=== PATIENT | male | born 1965 | race African-American/Black ===

== ENCOUNTER → 2018-08-13 | Emergency (ER) | payer OTHER ==
[~2018-08-13] VITALS: Ht 185.4 cm; Wt 66.7 kg
[~2018-08-13] MED LIST: AMOXICILLIN500 MG ORAL; IBUPROFEN600 MG ORAL; NKM
--- NOTE | 2018-08-13 11:21 | NUR ---
ED Nurse Note: Provided mask.
--- NOTE | 2018-08-13 11:30 | NUR ---
ED Nurse Note: pt walked into ED c/o flu like s/s about three days, chills, bodyache, fever, cough and sorethroa. Pt aA&ox4, gcs=15, skin warm and dry, resp even and unlabored, -n/v/d, ambulates w/ steady gait, LS=clear, occasional cough and nasal congestion noted.
[2018-08-13 12:20] VITALS: BP 120/70
[2018-08-13 12:22] VITALS: BP 120/70
--- NOTE | 2018-08-13 12:24 | NUR ---
ED Nurse Note: pt discharge instruction provided w/ prescription, pt education done via discussion and handout, pt advised to follow up w/ pcp 2-3days, pt verbalized understanding and agrees with plan, pt wrist band removed, pt ambulatory w/ steady gait, vss, all belongings left w/ pt.
--- NOTE | 2018-08-16 07:16 | Emergency Room Report ---
History of Present Illness General Chief Complaint: Flu Like Symptoms Source: Patient Present Illness HPI Patient presents with complaints of sore throat pain with swallowing body ache chills Subjective fevers Denies any posterior neck pain or photophobia denies any vomiting denies any diarrhea Denies any lower abdominal pain denies any recent travel denies any rash Symptoms ongoing for the past 5-6 days Allergies: Coded Allergies: No Known Allergies (Unverified , 08/13/18) Patient History Past Medical History: see triage record Pertinent Family History: none Reviewed Nursing Documentation: PMH: Agreed; PSxH: Agreed Nursing Documentation-PMH Past Medical History: No Stated History Review of Systems All Other Systems: negative except mentioned in HPI Physical Exam Vital Signs Date Time Temp Pulse Resp B/P (MAP) Pulse Ox O2 Delivery O2 Flow Rate FiO2 08/13/18 11:13 98.2 50 16 120/76 97 Room Air Sp02 EP Interpretation: reviewed, normal General Appearance: well appearing, no apparent distress Head: normocephalic, atraumatic Eyes: bilateral eye PERRL, bilateral eye EOMI ENT: hearing grossly normal, TMs + canals normal, uvula midline, pharyngeal erythema Neck: full range of motion, supple, no meningismus, no bony tend Respiratory: lungs clear, normal breath sounds, no rhonchi, no respiratory distress, no retraction, no accessory muscle use Cardiovascular #1: normal peripheral pulses, regular rate, rhythm, no edema, no gallop, no JVD, no murmur Gastrointestinal: normal bowel sounds, non tender, soft, no mass, no organomegaly, non-distended, no guarding, no hernia, no pulsatile mass, no rebound Genitourinary: no CVA tenderness Musculoskeletal: normal inspection Neurologic: oriented x3, responsive, laundry presser III-XII nml as tested, motor strength/ tone normal, sensory intact Psychiatric: mood/affect normal Skin: normal color, no rash, warm/dry, palpation normal Lymphatic: normal inspection, no adenopathy Medical Decision Making Diagnostic Impression: Primary Impression: pharyngitis ER Course Patient's history and exam does have some consistency with flulike symptoms given the throat exam however in the increased erythema in the discomfort likely secondary pharyngitis also considered Patient placed on antibiotics For close outpatient follow-up and will return with any changes or concerns Last Vital Signs Date Time Temp Pulse Resp B/P (MAP) Pulse Ox O2 Delivery O2 Flow Rate FiO2 08/13/18 12:22 98.2 78 16 120/70 99 Room Air Status: unchanged Disposition: HOME, SELF-CARE Condition: Stable Scripts Amoxicillin* (AMOXIL*) 500 Mg Capsule 500 MG ORAL THREE TIMES A DAY, #21 CAP Prov: Javad Segura DO 08/13/18 Ibuprofen* (MOTRIN*) 600 Mg Tablet 600 MG ORAL Q8H PRN for For Pain, #20 TAB 0 Refills Prov: Javad Segura DO 08/13/18 Referrals: [facility],REFERRING (PCP) Patient Instructions: Pharyngitis, [id number] Additional Instructions: Patient is provided with the discharge instructions notified to follow up with primary doctor in the next 2-3 days otherwise return to the er with any worsening symptoms. Please note that this report is being documented using [employer] technology. This can lead to erroneous entry secondary to incorrect interpretation by the dictating instrument. Javad Segura DO Aug 16, 2018 07:16
== END | disposition home or self-care (01) ==
LOC: EMR 11:53
DX: J02.9 Acute pharyngitis, unspecified (principal)
CPT/HCPCS: 99282

== ENCOUNTER 2018-11-17 09:44 | Emergency (ER) | payer OTHER ==
[~2018-11-17] VITALS: Ht 188 cm; Wt 68.0 kg
[2018-11-17] MEDS ORDERED: SOMA350 MG PO (10:11)
[2018-11-17] MEDS ORDERED: GABAPENTIN300 MG ORAL (10:11)
[2018-11-17 10:43] VITALS: BP 131/85
--- NOTE | 2018-11-17 10:45 | NUR ---
ED Nurse Note:pt. came with dry blister on left inner foot
--- NOTE | 2018-11-17 12:25 | Emergency Room Report ---
History of Present Illness General Chief Complaint: Skin Rash/Abscess Source: Patient Present Illness HPI This patient states that he has been developing large fluid-filled lesions on his left foot. He states that these have been going on for many months. He states they come and go. He states they rupture spontaneously. He denies fever or chills. He denies nausea or vomiting. He does have a history of arthritis in his spine and stenosis throughout his spine. He is chronically on pain medications. He states that he recently had a large lesion on his left lateral foot that did rupture. He has not seen his primary care physician for this. He states this is been going on for some time. He also has a lesion on his left ear that he has had since childhood that his recently grown larger. He states it has been biopsied a couple times. However, he has not gotten the results of these biopsies because they have been hospitals. He has no other complaints. Allergies: Coded Allergies: No Known Allergies (Unverified , 08/13/18) Patient History Past Medical History: see triage record, other - Spinal stenosis, DDD, arthritis Social History: Denies: smoking, alcohol use, drug use Reviewed Nursing Documentation: PMH: Agreed; PSxH: Agreed Review of Systems All Other Systems: negative except mentioned in HPI Physical Exam Vital Signs Date Time Temp Pulse Resp B/P (MAP) Pulse Ox O2 Delivery O2 Flow Rate FiO2 11/17/18 10:04 98.4 60 16 131/85 97 Room Air Sp02 EP Interpretation: reviewed, normal General Appearance: no apparent distress, alert, GCS 15, non-toxic Head: normocephalic, atraumatic Eyes: bilateral eye normal inspection, bilateral eye PERRL ENT: hearing grossly normal, normal pharynx, no angioedema, normal voice Neck: full range of motion, supple/symm/no masses Respiratory: no respiratory distress, no retraction, no accessory muscle use, speaking full sentences Rectal: deferred Musculoskeletal: back normal, gait/station normal, normal range of motion, non- tender Neurologic: alert, oriented x3, responsive, motor strength/tone normal, sensory intact, speech normal Psychiatric: judgement/insight normal, memory normal, mood/affect normal, no suicidal/homicidal ideation Skin: warm/dry, well hydrated, other - Ruptured Bulla L. lateral foot and ball of L. foot, no erythema or swelling. Medical Decision Making Diagnostic Impression: Primary Impression: Bullous pemphigoid ER Course This patient has findings on exam consistent with bullous pemphigoid. The patient may have other undiagnosed autoimmune disorders. Especially given his history of rapid spinal stenosis and degenerative disc disease. I will treat the patient initially for the bullous pemphigoid with topical steroids and oral steroids. The patient also requested antibiotics because he states at times the area becomes red and swollen. At this time there is no evidence of surrounding infection on exam. I educated the patient that he would need to follow closely with his primary care physician for ongoing treatment of this. He was also educated that he may want to see an orthopedic surgeon, I wilderness guide and a decker operator specifically for the lesion on his ear. It is reassuring that this has been biopsied previously and not identified as malignant. Regardless, I educated this patient would be very important to follow-up closely with this ear lesion as it could be a malignancy. He indicated understanding and intention to do so. He is given close return precautions and follow-up instructions. Last Vital Signs Date Time Temp Pulse Resp B/P (MAP) Pulse Ox O2 Delivery O2 Flow Rate FiO2 11/17/18 10:43 98.4 79 16 131/85 97 Room Air Status: improved Disposition: HOME, SELF-CARE Condition: Improved Referrals: NON PHYSICIAN (PCP) Barbara Flowers DO Nov 17, 2018 12:25
[2018-11-17] MEDS ORDERED: DOXYCYCLINE MO100 MG ORAL (12:37)
[2018-11-17] MEDS ORDERED: PREDNISONE20 MG ORAL (12:37)
[2018-11-17] MEDS ORDERED: LIDODERM700 M1 TOPIC (12:37)
[2018-11-17] MEDS ORDERED: CLOBETASOL EMOL15 GM TP (12:37)
[2018-11-17 13:00] VITALS: BP 131/85
--- NOTE | 2018-11-17 13:02 | NUR ---
ER DISCHARGE NOTE: Patient is cleared to be discharged per ERMD, pt is aox4, on room air, with stable vital signs. pt was given dc and prescription instructions, pt was able to verbalize understanding, pt is able to ambulate with steady gait. pt took all belongings.
== END 2018-11-17 13:03 | disposition home or self-care (01) ==
LOC: EMR 11:29
DX: L12.0 Bullous pemphigoid (principal); M19.90 Unspecified osteoarthritis, unspecified site; M48.00 Spinal stenosis, site unspecified; Z79.899 Other long term (current) drug therapy
CPT/HCPCS: 99282

== ENCOUNTER 2019-02-06 07:53 | Emergency (ER) | payer OTHER ==
[~2019-02-06] VITALS: Ht 188 cm; Wt 65.8 kg
[~2019-02-06 07:53] MED LIST changes: +CLOBETASOL EMOL15 GM TP; +DOXYCYCLINE MO100 MG ORAL; +GABAPENTIN300 MG ORAL; +LIDODERM700 M1 TOPIC; +PREDNISONE20 MG ORAL; +SOMA350 MG PO
[2019-02-06 08:15] VITALS: BP 145/80
--- NOTE | 2019-02-06 08:21 | NUR ---
ED Nurse Note: pt walked in to ED due to left earache for 2 days. pt also c/o general body pain. on pain mangement. AAO x4. respirations even and non-labored noted. will wait for the further order.
[2019-02-06] MEDS ORDERED: LIDODERM700 M1 TOPIC (08:56)
[2019-02-06] MEDS ORDERED: OFLOXACIN5 ML LEFT EAR (08:56)
[2019-02-06 09:08] VITALS: BP 145/80
--- NOTE | 2019-02-06 09:09 | NUR ---
ER DISCHARGE NOTE: Patient is cleared to be discharged per ERMD, pt is aox4, on room air, with stable vital signs. pt was given dc and prescription instructions, pt was able to verbalize understanding, pt id band removed. pt is able to ambulate with steady gait. pt took all belongings.
--- NOTE | 2019-02-06 09:30 | Emergency Room Report ---
History of Present Illness General Chief Complaint: Earache Source: Patient Present Illness HPI 53-year-old male presents ED for evaluation. Patient is here for evaluation of ringing in his ears and right ear pain in his left ear and left ear pain for the last 3 days. Pain is throbbing, 5 out of 10, nonradiating. Denies fevers or chills. Denies cough. Also states that he has pain in his shoulders and neck. History of cervical stenosis. Pain is chronic. States he does see pain management also complaining of blisters to his feet. States they come and go regardless of he is standing or walking. States that he was scheduled to see a conditioning coach but they were unable to see him because of insurance. No other aggravating or relieving factors. Denies any other associated symptoms Allergies: Coded Allergies: No Known Allergies (Unverified , 08/13/18) Patient History Past Medical History: none Past Surgical History: none Pertinent Family History: none Social History: Denies: smoking, alcohol use, drug use Immunizations: UTD Reviewed Nursing Documentation: PMH: Agreed; PSxH: Agreed Nursing Documentation-PMH Past Medical History: No History, Except For Review of Systems All Other Systems: negative except mentioned in HPI Physical Exam Vital Signs Date Time Temp Pulse Resp B/P (MAP) Pulse Ox O2 Delivery O2 Flow Rate FiO2 02/06/19 08:03 98.1 57 20 145/80 (101) 97 Room Air Sp02 EP Interpretation: reviewed, normal General Appearance: no apparent distress, alert, GCS 15, non-toxic Head: normocephalic Eyes: bilateral eye normal inspection, bilateral eye PERRL, bilateral eye EOMI ENT: normal pharynx, no angioedema, normal voice, other - L ear canal swollen. L TM ok. fungating black mass on L ear pinna Neck: full range of motion, supple, no meningismus, supple/symm/no masses, tender lateral Respiratory: chest non-tender, lungs clear, normal breath sounds, speaking full sentences Cardiovascular #1: normal inspection Gastrointestinal: normal inspection Rectal: deferred Genitourinary: no CVA tenderness Musculoskeletal: back normal, gait/station normal, normal range of motion Neurologic: alert, oriented x3, responsive, motor strength/tone normal, sensory intact, speech normal Psychiatric: normal inspection Skin: other - multiple small fluid filled blisters on sole of foot Lymphatic: normal inspection Medical Decision Making Diagnostic Impression: Primary Impression: Ear ringing Qualified Codes: H93.12 - Tinnitus, left ear Additional Impressions: Blister of foot Qualified Codes: S90.829A - Blister (nonthermal), unspecified foot, initial encounter Chronic pain Qualified Codes: G89.29 - Other chronic pain Mass of ear auricle Qualified Codes: H93.8X2 - Other specified disorders of left ear ER Course Hospital Course 53-year-old M presents to ED with pain L ear with ringing. bilateral shoulder pain. blisters to both feet Differential diagnoses include: TM perforation, otitis externa, otitis media Clinical course Patient placed on stretcher. After initial history, physical exam reveals a middle aged male in no acute distress. There is a black fungating mass on the auricle of the left ear. Patient states it has been there for years. States that he had it removed partially at [facility] a few years ago but it has grown back. Was not given a diagnosis at the time. The left ear canal appears to be swollen and tender with speculum insertion. Left TM unremarkable Patient has no midline neck tenderness but paraspinal tenderness. There appeared to be several small fluid-filled blisters on the sole of patient's feet bilaterally. I reviewed EMR. Patient has been here previously for similar fluid-filled blisters. Commended to follow-up with podiatry but has not yet. Will provide podiatry referrals Will provide lidocaine patches for his chronic pain. States he will continue see his pain management as scheduled. Prescribed Ocuflox for presumed otitis externa however patient needs need to see ENT as outpatient regarding the fungating mass on his left ear. No history of immunocompromise state These are chronic conditions for this patient; none of which are acute. Patient understands that he needs to follow-up with the appropriate specialists on outpatient basis which he has been recommended to do so previously in the past Diagnosis - ear ringing, blister of foot, chronic pain, mass of ear auricle Stable and discharged to home with Rx ofloxacin otic, lidoderm patches. Followup with PMD/ENT/Podiatry. Return to ED if symptoms recur or worsen Last Vital Signs Date Time Temp Pulse Resp B/P (MAP) Pulse Ox O2 Delivery O2 Flow Rate FiO2 02/06/19 09:08 98.1 57 20 145/80 97 Room Air Status: improved Disposition: HOME, SELF-CARE Condition: Stable Scripts Ofloxacin (OFLOXACIN) 5 Ml Drops 10 DROP LEFT EAR DAILY for 7 Days, ML Prov: Rodriguez Barrett MD 02/06/19 Lidocaine (Lidoderm) 1 Each Adh..patch 1 PATCH TOPIC see instructions, #14 PATCH 0 Refills Patch(es) may remain in place for up to 12 hours in any 24-hour period. Prov: Rodriguez Barrett MD 02/06/19 Referrals: AMADO STOKES M.D., Vivek-Sagar MD Patient Instructions: Tinnitus, Blisters Rodriguez Barrett MD Feb 06, 2019 09:30
== END 2019-02-06 09:09 | disposition home or self-care (01) ==
LOC: EMR 08:29
DX: H93.12 Tinnitus, left ear (principal); S90.829A Blister (nonthermal), unspecified foot, initial encounter; G89.29 Other chronic pain; H93.8X2 Other specified disorders of left ear; X58.XXXA Exposure to other specified factors, initial encounter; Y92.9 Unspecified place or not applicable
CPT/HCPCS: 99282

== ENCOUNTER 2019-05-25 00:06 | Emergency (ER) | payer OTHER ==
[~2019-05-25] VITALS: Ht 188 cm; Wt 63.5 kg
[~2019-05-25 00:06] MED LIST changes: +OFLOXACIN5 ML LEFT EAR
--- NOTE | 2019-05-25 00:10 | NUR ---
ED Nurse Note: Darrell walked into ED accompanied by girlfriend c/o right sided abscess. patient states for the past day it has geen growing bigger and bigger, unable to fully close mouth, denies any SOB, rates his pain a 10/10. patient is alert and oriented x4, able to walk with a steady gait, VSS. will wait for further orders
[2019-05-25 00:15] VITALS: BP 127/75
[2019-05-25] MEDS ORDERED: Lidocaine 1% 10mg/ml/EPI 0.01mg/ml 20ml INJ ONE (00:30)
--- NOTE | 2019-05-25 00:40 | NUR ---
ED Nurse Note: Patient does not want Dr. Quiroz to continue to draining procedure. lidocaine returned. patikeshan states that he just wants antibiotic pills, Dr. quiroz aware and notified
[2019-05-25] MEDS ORDERED: IBUPROFEN600 MG ORAL (00:46)
[2019-05-25] MEDS ORDERED: PENICILLIN V P500 MG PO (00:46)
[2019-05-25 00:58] VITALS: BP 122/72
--- NOTE | 2019-05-25 00:58 | Emergency Room Report ---
History of Present Illness General Chief Complaint: Skin Rash/Abscess Source: Patient Present Illness HPI Patient is a 54-year-old male who presents after increased right-sided facial swelling and pain. Patient reports having onset this morning.Patient denies any fever. He reports having prior history of dental infections in the past. He states he is usually improved with antibiotics. Allergies: Coded Allergies: No Known Allergies (Unverified , 08/13/18) Patient History Past Medical History: see triage record Reviewed Nursing Documentation: PMH: Agreed; PSxH: Agreed Nursing Documentation-PMH Past Medical History: No Stated History Review of Systems All Other Systems: negative except mentioned in HPI Physical Exam Vital Signs Date Time Temp Pulse Resp B/P (MAP) Pulse Ox O2 Delivery O2 Flow Rate FiO2 05/25/19 00:08 98.4 55 16 127/75 (92) 100 Room Air General Appearance: well appearing, no apparent distress, alert, GCS 15, non- toxic Head: normocephalic, atraumatic ENT: hearing grossly normal, normal voice Neck: full range of motion, supple Respiratory: chest non-tender, lungs clear, normal breath sounds, no rhonchi, no respiratory distress, speaking full sentences Gastrointestinal: normal inspection Musculoskeletal: normal inspection Neurologic: normal inspection, alert, oriented x3, responsive, streetcar motorman III-XII nml as tested, normal gait Psychiatric: mood/affect normal Skin: normal inspection, no rash Medical Decision Making Diagnostic Impression: Primary Impression: Dental abscess ER Course Patient presented for dental pain. Differential diagnosis included but was not limited to trigeminal neuralgia, dental abscess, dry socket, osteomyelitis, nerve injury. Patient was noted to have soft tissue swelling to the side of the face. Patient does not show any trismus or abscess. The patient is advised to follow up with dentist or oral surgeon in 1-2 days. Patient is advised to return if any worsening condition or if any changes in status that are concerning. Last Vital Signs Date Time Temp Pulse Resp B/P (MAP) Pulse Ox O2 Delivery O2 Flow Rate FiO2 05/25/19 00:15 98.4 56 16 127/75 100 Room Air Status: improved Disposition: HOME, SELF-CARE Condition: Stable Scripts Ibuprofen* (MOTRIN*) 600 Mg Tablet 600 MG ORAL Q8H PRN for For Pain, #20 TAB 0 Refills Prov: Gera Quiroz MD 05/25/19 Penicillin V Potassium* (PENVK*) 500 Mg Tablet 500 MG PO Q6H, #28 TAB 0 Refills Prov: Gera Quiroz MD 05/25/19 Patient Instructions: Gera Huff MD May 25, 2019 00:58
--- NOTE | 2019-05-25 00:58 | NUR ---
ER DISCHARGE NOTE: Patient is cleared to be discharged per ERMD, pt is aox4, on room air, with stable vital signs. pt was given dc and prescription instructions, pt was able to verbalize understanding, pt id band removed without complications. pt is able to ambulate with steady gait. pt took all belongings.
== END 2019-05-25 00:59 | disposition home or self-care (01) ==
LOC: EMR 00:24
DX: K04.7 Periapical abscess without sinus (principal)
CPT/HCPCS: 99282

== ENCOUNTER 2019-10-19 08:56 | Emergency (ER) | payer OTHER ==
[~2019-10-19] VITALS: Ht 180.3 cm; Wt 67.1 kg
[~2019-10-19 08:56] MED LIST changes: +PENICILLIN V P500 MG PO
[2019-10-19 09:04] VITALS: BP 115/78
[2019-10-19] MEDS ORDERED: NORCO 10-325 T1 EACH ORAL (09:08)
[2019-10-19] MEDS ORDERED: GABAPENTIN600 MG ORAL (09:08)
--- NOTE | 2019-10-19 09:13 | NUR ---
ED Nurse Note: patient walked into ED from home c/o left foot blister on the bottom of the foot. patient reports it's so painful that he cannot walk and able to function regulary at work. Dr. Curtis at bedside.
[2019-10-19] MEDS ORDERED: PREDNISONE20 MG ORAL (09:21)
[2019-10-19] MEDS ORDERED: NEOSPORIN OINT30 GM TOPIC (09:21)
[2019-10-19] MEDS ORDERED: IBUPROFEN600 MG ORAL (09:21)
--- NOTE | 2019-10-19 09:26 | Emergency Room Report ---
History of Present Illness General Chief Complaint: Skin Rash/Abscess Source: Patient Present Illness HPI Patient is a 54-year-old male past medical history of bullous pemphigoid who presents to the ER complaining of a blister to the bottom of his left foot. He states that it has been getting worse over the past week. He denies any fever, chills, nausea or vomiting. He states that last time he was here he was treated with steroids and that it improved. Patient states that he cannot obtain a follow-up appoint with his primary care physician for a month. Patient states the pain is worse when walking. He denies any redness or discharge from the blister. COVID-19 risk:Travel to affect: No Allergies: Coded Allergies: No Known Allergies (Unverified , 08/13/18) Patient History Reviewed Nursing Documentation: PMH: Agreed; PSxH: Agreed Nursing Documentation-PMH Past Medical History: No History, Except For Review of Systems All Other Systems: negative except mentioned in HPI Physical Exam Vital Signs Date Time Temp Pulse Resp B/P (MAP) Pulse Ox O2 Delivery O2 Flow Rate FiO2 10/19/19 09:04 97.9 78 16 115/78 (90) 99 Room Air Sp02 EP Interpretation: reviewed, normal General Appearance: GCS 15, mild distress Head: normocephalic, atraumatic Eyes: bilateral eye normal inspection, bilateral eye PERRL ENT: hearing grossly normal, normal pharynx, no angioedema, normal voice Neck: full range of motion, supple/symm/no masses Respiratory: chest non-tender, lungs clear, normal breath sounds, speaking full sentences Cardiovascular #1: regular rate, rhythm, no edema Gastrointestinal: normal bowel sounds, non tender, soft, non-distended, no guarding, no rebound Rectal: deferred Musculoskeletal: other - Blister to plantar surface of left foot at the base of the first and second metatarsal with no erythema and no discharge, no crepitus, no signs of local infection Neurologic: alert, motor strength/tone normal, oriented x3, sensory intact, responsive, speech normal, other - Antalgic gait Psychiatric: judgement/insight normal, memory normal, mood/affect normal, no suicidal/homicidal ideation Skin: no rash Lymphatic: no adenopathy Medical Decision Making Diagnostic Impression: Primary Impression: Bullous pemphigoid Additional Impression: Blister of foot ER Course Patient started on steroids. We also gave the patient topical antibiotics in case the blister opens. There are no local signs of infection. Patient has no fever and there is no redness to the area. Patient also given surgical shoe for comfort. After discussing risks and benefits of further diagnostics, treatment plans, as well as indications for and risks of admission, the patient is agreeable to being discharged home. I have explained that their evaluation and treatment in the emergency department today is an important step towards them achieving better health but that their evaluation today is not intended to replace further evaluation and treatment by a physician in their local clinic. I have explained that while the current findings suggest no immediate life threatening emergency they will require further evaluation and treatment by a physician of their choice in their area. They understand that it will be necessary for them to review the final reports of their ED visit with their clinic physician. We have reviewed indications for return to the Emergency Department. I have explained that additional time may need to pass and/or additional testing as an outpatient may be necessary before a definitive diagnosis can be made. They tell me they are willing to follow up as instructed within the timeframe I recommend. They appear to understand what we discussed. Additionally they understand that if they are unable to be seen by an outpatient physician they are welcome, and in fact should, return to the Emergency Department for a repeat evaluation. The patient is stable at time of discharge. Last Vital Signs Date Time Temp Pulse Resp B/P (MAP) Pulse Ox O2 Delivery O2 Flow Rate FiO2 10/19/19 09:04 97.9 78 16 115/78 99 Room Air Disposition: HOME, SELF-CARE Condition: Stable Scripts Neomycin/Polymyxin/Bacitracin* (Triple Antibiotic Ointment*) 28 Gm Oint...g. 30 GM TOPIC TID, #1 GM Apply a thin film (amount equal to the surface area of the fingertip) to the affected area 3 times daily. Prov: Paige Curtis M.D. 10/19/19 Prednisone* (PREDNISONE*) 20 Mg Tablet 60 MG ORAL DAILY for 5 Days, TAB Prov: Paige Curtis M.D. 10/19/19 Ibuprofen* (MOTRIN*) 600 Mg Tablet 600 MG ORAL Q8H PRN for For Pain, #30 TAB 0 Refills Prov: Paige Curtis M.D. 10/19/19 Referrals: [facility] Departure Forms: Return to Work Return to Work in (Days): 1 Return to Work Date: Oct 20, 2019 Other Restrictions: Minimal weight bearing Patient Instructions: Bullous Pemphigoid Additional Instructions: The patient was provided with discharge instructions, notified to follow-up with a primary care doctor and or specialist in the next 24-48 hours, and to return to the ED if they have worsening of their symptoms. Please note that this report is being documented using [employer] technology. This can lead to erroneous entry secondary to incorrect interpretation by the dictating instrument. Paige Curtis M.D. Oct 19, 2019 09:26
[2019-10-19] MEDS ORDERED: HYDROcodone/Acetamin 5/325 tab ORAL ONE (09:30)
--- NOTE | 2019-10-19 09:30 | NUR ---
ER DISCHARGE NOTE: Patient is cleared to be discharged per ERMD DR Curtis, pt is aox4, on room air, with stable vital signs. pt was given dc and prescription instructions, pt was able to verbalize understanding, pt id band and removed without complications. pt is able to ambulate with steady gait. pt took all belongings.
[2019-10-19 09:34] VITALS: BP 115/78
== END 2019-10-19 09:34 | disposition home or self-care (01) ==
LOC: EMR 09:15
DX: S90.822A Blister (nonthermal), left foot, initial encounter (principal); L12.0 Bullous pemphigoid; X58.XXXA Exposure to other specified factors, initial encounter; Y92.9 Unspecified place or not applicable
CPT/HCPCS: 99282; J7512